=== PATIENT | female | born 1995 | race Two or more races ===

== ENCOUNTER 2021-11-14 11:15 | Emergency (ER) | payer OTHER, SELFPAY ==
--- NOTE | ~2021-11-14 | XR_ITS ---
EXAMINATION: XR CHEST CLINICAL INFORMATION: Chest pain COMPARISON: None TECHNIQUE: Frontal view of the chest was obtained. FINDINGS: No significant abnormality is noted involving the heart, lungs, mediastinum, bony thorax or soft tissues. XR/XR chest 1V IMPRESSION: Unremarkable examination.
--- NOTE | 2021-11-14 11:19 | ECG_ITS ---
Test Reason : CHEST PAIN Blood Pressure : / mmHG Vent. Rate : 105 BPM Atrial Rate : 105 BPM P-R Int : 136 ms QRS Dur : 078 ms QT Int : 336 ms P-R-T Axes : 055 069 031 degrees QTc Int : 444 ms Sinus tachycardia Possible Left atrial enlargement Borderline ECG No previous ECGs available Referred By: Generic ED Physician Electronically Signed By:OLGA LIDIA GARSIA MD
[2021-11-14 11:26] VITALS: BP 140/91; PULSE 110; RESP 22; TEMP 37.6; O2SAT 99; BMI 23.7
[2021-11-14 12:00] VITALS: BP 143/83; PULSE 100; RESP 20; TEMP 37.2; O2SAT 98
[2021-11-14 12:09] LABS: MANUAL DIFF FLAG NO
[2021-11-14 12:11] LABS: Basophils Percent Auto 0.3 % (0-2); Eosinophils Percent Auto 0.3 % (0-4); Hematocrit 38.5 % (37.0-47.0); Hemoglobin 13.1 g/dl (12.0-16.0); Imm Gran Abs Auto 0.03 X10*3/uL (0.00-0.03); Imm Gran Pct Auto 0.4 % (0.0-0.4); Lymphocytes Absolute Auto 0.9 X10*3/uL (1.2-4.9); Mean Corpuscular Hemoglobin 31.3 pg (27.0-33.0); Mean Corpuscular Volume 91.9 fL (80.0-98.0); Mean Platelet Volume 9.9 fL (9.4-12.3); Monocytes Absolute Auto 0.9 X10*3/uL (0.1-1.2); Monocytes Percent Auto 11.9 % (2-11); Neutrophils Absolute Auto 5.3 x10*3/uL (2.0-8.3); Neutrophils Percent Auto 74.1 % (45-73); Platelet Count 230 X10*3/uL (160-400); Red Blood Count 4.19 X10*6/uL (4.20-5.50); Red Cell Distribution Width 12.4 % (11.0-16.0); White Blood Count 7.2 X10*3/uL (4.8-10.8)
--- NOTE | 2021-11-14 12:18 | ED.CHESTPAIN ---
HPI - Chest Pain General Chief Complaint: Chest Pain <JEFFREY Murillo Last Filed: 11/14/21 14:01> Stated Complaint: chest pain <JEFFREY Murillo Last Filed: 11/14/21 14:01> Time Seen by Provider: 11/14/21 12:18 <JEFFREY Murillo Last Filed: 11/14/21 14:01> Source: patient <JEFFREY Murillo Last Filed: 11/14/21 14:01> Mode of arrival: ambulatory <JEFFREY Murillo Last Filed: 11/14/21 14:01> Limitations: no limitations <JEFFREY Murillo Last Filed: 11/14/21 14:01> History of Present Illness HPI narrative: Patient is a 26 year old female presenting to the emergency department today with chest pain and a sore throat. Patient states that she was around a coworker with similar symptoms just the other day. Patient states that her chest pain is more of a body ache and she feels it more than just in her chest. Patient denies any current dizziness, lightheadedness, abdominal pain, nausea, vomiting, fever, chills, blurry vision, double vision, loss of vision, chest pain, difficulty breathing, shortness of breath, back pain, night sweats, pain with urination, increased urinary frequency, increased urinary urgency, blood in her urine or stool, syncope or a near syncopal episode, recent trauma or falls, bowel incontinence, bladder incontinence, bowel retention, bladder retention, or any other complaints at this time. <JEFFREY Murillo Last Filed: 11/14/21 14:01> Pain radiation: none <JEFFREY Murillo Last Filed: 11/14/21 14:01> Severity: mild <JEFFREY Murillo Last Filed: 11/14/21 14:01> Pain scale (0-10): 3 <JEFFREY Murillo Last Filed: 11/14/21 14:01> Quality: dull <JEFFREY Murillo Last Filed: 11/14/21 14:01> Relieving factors: nothing <JEFFREY Murillo Last Filed: 11/14/21 14:01> Exacerbating factors: nothing <JEFFREY Murillo Last Filed: 11/14/21 14:01> Treatment prior to arrival: none <JEFFREY Murillo - Last Filed: 11/14/21 14:01> Risk Factors Coronary artery disease risk factors: none <JEFFREY Murillo - Last Filed: 11/14/21 14:01> Thoracic aortic dissection risk factors: none <JEFFREY Murillo - Last Filed: 11/14/21 14:01> Related Data Allergies/Adverse Reactions: Allergies Allergy/AdvReac Type Severity Reaction Status Date / Time No Known Allergies Allergy Verified 11/14/21 11:29 <JEFFREY Murillo - Last Filed: 11/14/21 14:01> Review of Systems Constitutional: Constitutional: Reports no additional constitutional complaints, Denies chills, Denies fever(s) and Denies night sweats <JEFFREY Murillo - Last Filed: 11/14/21 14:01> Comments: body aches <JEFFREY Murillo - Last Filed: 11/14/21 14:01> Eyes: Eyes: Reports no additional eye complaints, Denies blurry vision, Denies change in vision, Denies diplopia, Denies eye discharge, Denies loss of vision and Denies eye pain <JEFFREY Murillo - Last Filed: 11/14/21 14:01> ENT: Denies dizziness and Reports sore throat <JEFFREY Murillo - Last Filed: 11/14/21 14:01> Cardiovascular: Cardiovascular: Reports no additional cardiovascular complaints, Denies chest pain, Denies lightheadedness, Denies Loss of Consciousness and Denies dyspnea <JEFFREY Murillo - Last Filed: 11/14/21 14:01> Respiratory: Respiratory: Reports no additional respiratory complaints and Denies dyspnea <JEFFREY Murillo - Last Filed: 11/14/21 14:01> Gastrointestinal: Gastrointestinal: Reports no additional gastrointestinal complaints, Denies abdominal pain, Denies melena, Denies hematochezia, Denies change in bowel habits and Denies change in stool character <JEFFREY Murillo - Last Filed: 11/14/21 14:01> Genitourinary: Genitourinary: Denies hematuria, Denies urinary frequency, Denies dysuria, Denies urinary incontinence, Denies urinary hesitancy and Denies urinary urgency <JEFFREY Murillo - Last Filed: 11/14/21 14:01> Musculoskeletal: Musculoskeletal: Reports no additional musculoskeletal complaints, Denies numbness and Denies tingling <JEFFREY Murillo - Last Filed: 11/14/21 14:01> Neurologic: Denies dizziness, Denies loss of vision, Denies numbness and Denies tingling <JEFFREY Murillo - Last Filed: 11/14/21 14:01> Psychiatric: Psychiatric: Reports no additional psychiatric complaints <JEFFREY Murillo - Last Filed: 11/14/21 14:01> Endocrine: Endocrine: Reports no additional endocrine complaints <JEFFREY Murillo - Last Filed: 11/14/21 14:01> Hematologic/Lymphatic: Hematologic/Lymphatic: Reports no additional hematologic/lymphatic complaints <JEFFREY Murillo - Last Filed: 11/14/21 14:01> Allergic/Immunologic: Allergic/Immunologic: Reports no additional allergic/immunologic complaints <JEFFREY Murillo - Last Filed: 11/14/21 14:01> [facility] Past Medical History Attestation statement: The following information was validated with the patient. <JEFFREY Murillo - Last Filed: 11/14/21 14:01> Source: old records reviewed <JEFFREY Murillo - Last Filed: 11/14/21 14:01> Social History Social History: Social History Patient Tobacco Use Status: Current everyday Tobacco user Smoked in Last 30 Days: Yes Use of substances other than those prescribed or required for medical reasons: No Advance Directives: No Advance Directives Information Provided: No <JEFFREY Murillo - Last Filed: 11/14/21 14:01> Physical Exam Vital Signs: Vital Signs: Last Vital Signs Temp 98.9 F 11/14/21 12:00 Pulse 100 11/14/21 12:00 Resp 20 11/14/21 12:00 BP 143/83 H 11/14/21 12:00 Pulse Ox 98 11/14/21 12:00 BMI result Body Mass Index 23.7 <JEFFREY Murillo - Last Filed: 11/14/21 14:01> Const: General: cooperative, no acute distress, alert and awake <Sandee Pimentel PA - Last Filed: 11/14/21 14:01> Nutritional Appearance: well nourished <Sandee Pimentel PA - Last Filed: 11/14/21 14:01> Orientation/consciousness: patient oriented x3 <Sandee Pimentel IA - Last Filed: 11/14/21 14:01> Limitations: no limitations <Sandee Pimentel IA - Last Filed: 11/14/21 14:01> HEENT: Head: Yes normal to inspection and Yes atraumatic <Sandee Pimentel IA - Last Filed: 11/14/21 14:01> Ears: hearing grossly normal bilaterally and external ears normal <Sandee Pimentel PA - Last Filed: 11/14/21 14:01> General nose exam: Normal external nose present, no nasal discharge noted and no epistaxis <JEFFREY Murillo - Last Filed: 11/14/21 14:01> Face and sinus: Yes normal facial exam, No abrasion and No laceration <Sandee Pimentel IA - Last Filed: 11/14/21 14:01> Mouth: Normal oral and palatal mucosa present, no drooling and no muffled voice <Sandee Pimentel IA - Last Filed: 11/14/21 14:01> Eyes: General: appearance normal, both eyes and all related structures <Sandee Pimentel IA - Last Filed: 11/14/21 14:01> Periorbital: periorbital findings normal <Sandee Pimentel IA - Last Filed: 11/14/21 14:01> Eyelids: Yes eyelids normal <Sandee Pimentel PA - Last Filed: 11/14/21 14:01> Conjunctivae: conjunctivae normal <Sandee Pimentel PA - Last Filed: 11/14/21 14:01> Pupils: Equal, round and reactive pupils present <Sandee Pimentel PA - Last Filed: 11/14/21 14:01> EOM: EOMs intact bilaterally <JEFFREY Murillo - Last Filed: 11/14/21 14:01> Neck: Neck: Yes normal visual inspection, Yes full ROM and Yes no lymphadenopathy <JEFFREY Murillo - Last Filed: 11/14/21 14:01> Chest: Chest palpation & inspection: normal inspection of the chest <Sandee Pimentel JEFFREY - Last Filed: 11/14/21 14:01> Resp: Effort & Inspection: normal respiratory effort and able to speak in complete sentences <Sandee Pimentel IA - Last Filed: 11/14/21 14:01> Auscultation: clear to auscultation bilaterally <Sandee Pimentel IA - Last Filed: 11/14/21 14:01> Cardio: Rate: regular rate <Sandee Pimentel IA - Last Filed: 11/14/21 14:01> Rhythm: regular rhythm <Sandee Pimentel IA - Last Filed: 11/14/21 14:01> GI: Inspection: Yes normal to inspection <Sandee Pimentel IA - Last Filed: 11/14/21 14:01> Neuro: General: patient oriented x3 and moves all extremities <Sandee Pimentel IA - Last Filed: 11/14/21 14:01> Cranial nerves: Yes Equal, round and reactive pupils present <Sandee Pimentel IA - Last Filed: 11/14/21 14:01> Cognition (Neuro): normal cognition <Sandee Pimentel IA - Last Filed: 11/14/21 14:01> Motor exam (neuro): 5/5 motor strength present throughout <Sandee Pimentel IA - Last Filed: 11/14/21 14:01> Sensory Exam: Normal double simultaneous stimulation for sensation <Sandee Pimentel IA - Last Filed: 11/14/21 14:01> Coordination: [id number]-[id number] test normal <Sandee Pimentel IA - Last Filed: 11/14/21 14:01> Extrem: General: Yes normal to inspection, Yes full ROM and Yes capillary refill normal <Sandee Pimentel IA - Last Filed: 11/14/21 14:01> Psych: Appearance: grossly normal <Sandee Pimentel IA - Last Filed: 11/14/21 14:01> Mental Status: mental status grossly normal <Sandee Pimentel IA - Last Filed: 11/14/21 14:01> Affect: normal affect <Sandee Pimentel IA - Last Filed: 11/14/21 14:01> Attitude: cooperative <JEFFREY Murillo Last Filed: 11/14/21 14:01> Thought process: Normal thought process present <JEFFREY Murillo Last Filed: 11/14/21 14:01> Thought content: Normal thought content present <JEFFREY Murillo Last Filed: 11/14/21 14:01> Insight: Good insight present (Psych) <JEFFREY Murillo Last Filed: 11/14/21 14:01> MDM - Chest Pain MDM Narrative Medical decision making narrative: Patient is a 26 year old female presenting to the emergency department today with body aches and a sore throat. Patient's physical exam was unremarkable including a normal ENT exam. Patient's blood work was unremarkable. Patient's EKG was unremarkable. Patient's chest x-ray showed no acute process. Patient's rapid influenza test was positive. I explained my physical exam findings as well as all test results to the patient. I answered all questions asked by the patient. I stressed the importance of the patient taking her medication as prescribed. I stressed the importance of the patient following up with her primary care provider. I stressed the importance of the patient returning to the emergency department immediately if her symptoms were to worsen or if she were to develop any dizziness, shortness of breath, difficulty breathing, chest pain, blurry vision, loss of vision, nausea, vomiting, abdominal pain, fever, chills, back pain, or any other complaints. Patient verbalized agreement and understanding with this treatment plan and discharge. <JEFFREY Murillo - Last Filed: 11/14/21 14:01> Differential Diagnosis Differential diagnosis: Likely atypical chest pain and costochondritis <JEFFREY Murillo - Last Filed: 11/14/21 14:01> Differential diagnosis: influenza <JEFFREY Murillo Last Filed: 11/14/21 14:01> Medical Records Data Attestation: I reviewed the patient's medical records. <JEFFREY Murillo Last Filed: 11/14/21 14:01> Lab Data Attestation: I reviewed the patient's lab results. <JEFFREY Murillo Last Filed: 11/14/21 14:01> Result diagrams: : 11/14/21 12:05 11/14/21 12:05 <JEFFREY Murillo - Last Filed: 11/14/21 14:01> Labs: Lab Results 11/14/21 11/14/21 11/14/21 Range/Units 12:05 12:05 12:05 WBC 7.2 (4.8-10.8) X10*3/uL RBC 4.19 L (4.20-5.50) X10*6/uL Hgb 13.1 (12.0-16.0) g/dl Hct 38.5 (37.0-47.0) % MCV 91.9 (80.0-98.0) fL MCH 31.3 (27.0-33.0) pg MCHC 34.0 (31.0-35.0) g/dl RDW 12.4 (11.0-16.0) % Plt Count 230 (160-400) X10*3/uL MPV 9.9 (9.4-12.3) fL Immature Gran % (Auto) 0.4 (0.0-0.4) % Neut % (Auto) 74.1 H (45-73) % Lymph % (Auto) 13.0 L (20-40) % Dougherty % (Auto) 11.9 H (2-11) % Eos % (Auto) 0.3 (0-4) % Baso % (Auto) 0.3 (0-2) % Lymph # (Auto) 0.9 L (1.2-4.9) X10*3/uL Dougherty # (Auto) 0.9 (0.1-1.2) X10*3/uL Eos # (Auto) 0.0 (0.0-0.4) X10*3/uL Baso # (Auto) 0.0 (0.0-0.2) X10*3/uL Abs Immat Gran (auto) 0.03 (0.00-0.03) X10*3/uL Absolute Neuts (auto) 5.3 (2.0-8.3) x10*3/uL Absolute Nucleated RBC 0.000 (0.0-0.012) X10*3/uL Nucleated RBC % (auto) 0.0 (0.0-0.2) /100WBC Sodium 135 (135-145) mmol/L Potassium 3.7 (3.3-5.1) mmol/L Chloride 106 (96-108) mmol/L Carbon Dioxide 24 (22-29) mmol/L Anion Gap 9 L (12-20) BUN 9 (9-16) mg/dL Creatinine 0.63 (0.5-1.4) mg/dL Estim Creat Clear Calc 112.9 Estimated GFR > 60 Random Glucose 94 (60-115) mg/dL Calcium 9.5 (8.4-10.2) mg/dL Troponin I High Sens < 3.5 (<3.5-17.0) ng/L Influenza Type A (PCR) (Negative) Influenza Type B (PCR) (Negative) RSV RNA Qual (PCR) (Negative) SARS-CoV-2 RNA (RT-PCR) (Negative) S. pyogenes GrpA TONY (Negative) 11/14/21 11/14/21 Range/Units 12:06 12:33 WBC (4.8-10.8) X10*3/uL RBC (4.20-5.50) X10*6/uL Hgb (12.0-16.0) g/dl Hct (37.0-47.0) % MCV (80.0-98.0) fL MCH (27.0-33.0) pg MCHC (31.0-35.0) g/dl RDW (11.0-16.0) % Plt Count (160-400) X10*3/uL MPV (9.4-12.3) fL Immature Gran % (Auto) (0.0-0.4) % Neut % (Auto) (45-73) % Lymph % (Auto) (20-40) % Dougherty % (Auto) (2-11) % Eos % (Auto) (0-4) % Baso % (Auto) (0-2) % Lymph # (Auto) (1.2-4.9) X10*3/uL Dougherty # (Auto) (0.1-1.2) X10*3/uL Eos # (Auto) (0.0-0.4) X10*3/uL Baso # (Auto) (0.0-0.2) X10*3/uL Abs Immat Gran (auto) (0.00-0.03) X10*3/uL Absolute Neuts (auto) (2.0-8.3) x10*3/uL Absolute Nucleated RBC (0.0-0.012) X10*3/uL Nucleated RBC % (auto) (0.0-0.2) /100WBC Sodium (135-145) mmol/L Potassium (3.3-5.1) mmol/L Chloride (96-108) mmol/L Carbon Dioxide (22-29) mmol/L Anion Gap (12-20) BUN (9-16) mg/dL Creatinine (0.5-1.4) mg/dL Estim Creat Clear Calc Estimated GFR Random Glucose (60-115) mg/dL Calcium (8.4-10.2) mg/dL Troponin I High Sens (<3.5-17.0) ng/L Influenza Type A (PCR) POSITIVE A (Negative) Influenza Type B (PCR) NEGATIVE (Negative) RSV RNA Qual (PCR) NEGATIVE (Negative) SARS-CoV-2 RNA (RT-PCR) NEGATIVE (Negative) S. pyogenes GrpA TONY Negative (Negative) <JEFFREY Murillo - Last Filed: 11/14/21 14:01> Imaging Data Chest x-ray: Attestation: I personally reviewed and interpreted this imaging study as follows: <JEFFREY Murillo - Last Filed: 11/14/21 14:01> My impression: No acute process. <JEFFREY Murillo - Last Filed: 11/14/21 14:01> Radiologist's impression: EXAMINATION: XR CHEST CLINICAL INFORMATION: Chest pain COMPARISON: None TECHNIQUE: Frontal view of the chest was obtained. FINDINGS: No significant abnormality is noted involving the heart, lungs, mediastinum, bony thorax or soft tissues. XR/XR chest 1V IMPRESSION: Unremarkable examination. Dictated By: Shun Wharton MD Signed By: Electronically signed by Shun Wharton MD 11/14/21 1158 <JEFFREY Murillo - Last Filed: 11/14/21 14:01> ECG Data ECG #1: Attestation: I personally reviewed and interpreted this ECG as follows: <JEFFREY Murillo - Last Filed: 11/14/21 14:01> ECG interpretation date: 11/14/21 <JEFFREY Murillo - Last Filed: 11/14/21 14:01> ECG interpretation time: 11:24 <JEFFREY Murillo - Last Filed: 11/14/21 14:01> Prior ECG tracings: not available for review <JEFFREY Murillo - Last Filed: 11/14/21 14:01> Interpretation: Vent. Rate: 105 BPM ? ? Atrial Rate: 105 BPM P-R Int: 136 ms? QRS Dur: 078 ms QT Int: 336 ms ? ? ? P-R-T Axes: 055 069 031 degrees QTc Int: 444 ms ? Sinus tachycardia Possible Left atrial enlargement Borderline ECG No previous ECGs available ? Referred By: Generic ED Physician ? Electronically Signed By:CHIKI GARSIA MD Dictated By: Chiki Garsia MD Signed By: Electronically signed by Chiki Garsia MD 11/14/21 1302 <JEFFREY Murillo - Last Filed: 11/14/21 14:01> Discharge Plan Discharge Clinical Impression: Influenza <JEFFREY Murillo - Last Filed: 11/14/21 14:01> Patient Disposition: Home, Self-Care <JEFFREY Murillo - Last Filed: 11/14/21 14:01> Instructions: Influenza (DC) <JEFFREY Murillo - Last Filed: 11/14/21 14:01> Additional Instructions: Follow up with your primary care provider. Return to the emergency department immediately if your symptoms worsen or if you develop any dizziness, shortness of breath, difficulty breathing, chest pain, blurry vision, loss of vision, nausea, vomiting, abdominal pain, fever, chills, back pain, or any other complaints. <JEFFREY Murillo - Last Filed: 11/14/21 14:01> Referrals: Physician,Unknown J [Primary Care Provider] - (Follow up with your PCP. ) <JEFFREY Murillo - Last Filed: 11/14/21 14:01> Stand Alone Forms: Work/School Release <JEFFREY Murillo - Last Filed: 11/14/21 14:01> Interventions: ED Discharge Assessment Last Done: 11/14/21 13:35 <JEFFREY Murillo - Last Filed: 11/14/21 14:01> Discharge Date/Time: 11/14/21 13:37 <JEFFREY Murillo - Last Filed: 11/14/21 14:01> Print Language: Yi <JEFFREY Murillo - Last Filed: 11/14/21 14:01>
[2021-11-14 12:32] LABS: Anion Gap 9 (12-20); Blood Urea Nitrogen 9 mg/dL (9-16); Calcium 9.5 mg/dL (8.4-10.2); Carbon Dioxide 24 mmol/L (22-29); Chloride 106 mmol/L (96-108); Creatinine Clr Calc Pharmacy 112.9; Estimated Glomerular Filt Rate > 60; Glucose Random 94 mg/dL (60-115); Potassium 3.7 mmol/L (3.3-5.1); Sodium 135 mmol/L (135-145)
[2021-11-14 12:34] LABS: Troponin-I High Sensitivity < 3.5 ng/L (<3.5-17.0)
[2021-11-14 12:59] LABS: Influenza A PCR POSITIVE (Negative); Influenza B PCR NEGATIVE (Negative); Resp Syncy Virus RNA Qual PCR NEGATIVE (Negative); SARS COV2 PCR INHOUSE NEGATIVE (Negative)
[2021-11-14 13:03] LABS: Strep A Nucleic Acid Negative (Negative)
== END 2021-11-14 13:37 | disposition home or self-care (01) ==
PROVIDERS: Physician Assistant Medical; Emergency Provider Emergency Medicine
DX: J11.1 Influenza due to unidentified influenza virus with other respiratory manifestations (principal); R00.0 Tachycardia, unspecified; Z20.822 Contact with and (suspected) exposure to COVID-19
CPT/HCPCS: 0241U; 36415; 71045; 80048; 84484; 85025; 87651; 93005; 99283; 99284

== ENCOUNTER 2022-01-19 10:42 | Emergency (ER) | payer OTHER, SELFPAY ==
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
[2022-01-19 10:58] VITALS: BP 132/86; PULSE 97; RESP 16; O2SAT 99; BMI 23.3
[2022-01-19] MEDS: Cyclobenzaprine HCl 5 MG TABLET PO (11:05)
[2022-01-19] MEDS: Ketorolac Tromethamine 15 MG/ML VIAL IM (11:05)
== END 2022-01-19 11:36 | disposition home or self-care (01) ==
PROVIDERS: Emergency Provider Emergency Medicine Emergency Medical Services
DX: S69.91XA Unspecified injury of right wrist, hand and finger(s), initial encounter (principal); M54.50 Low back pain, unspecified; M79.10 Myalgia, unspecified site; V43.52XA Car driver injured in collision with other type car in traffic accident, initial encounter; Y93.9 Activity, unspecified; Y92.410 Unspecified street and highway as the place of occurrence of the external cause; Y99.9 Unspecified external cause status
CPT/HCPCS: 96372; 99283; 99284; J1885